=== PATIENT | female | born 1995 | race Caucasian/White ===

== ENCOUNTER → 2016-11-29 | Outpatient (CLI) | payer BC | LOC: BMCIMAGING 15:23 | PROVIDERS: ATTEND Emergency Medicine | DX: M25.561 Pain in right knee (principal) ==

== ENCOUNTER → 2017-12-18 | Outpatient (CLI) | payer BC | LOC: BMCIMAGING 11:48 | PROVIDERS: ATTEND Family Medicine | DX: R05 Cough (principal) | CPT/HCPCS: 71101-PO ==